=== PATIENT | male | born 1985 | race Caucasian/White ===

== ENCOUNTER 2023-07-16 02:39 | Emergency (ER) | payer OTHER, MEDICAID, SELFPAY ==
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
[2023-07-16 02:49] VITALS: BP 120/71; PULSE 97; RESP 16; TEMP 36.9; O2SAT 97; BMI 21.7
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
--- NOTE | 2023-07-16 02:55 | DI.RAD.S_ITS ---
PROCEDURE: XR FOREARM LT 2V INDICATIONS: pain TECHNIQUE: 2 views of the forearm were acquired. COMPARISON: None. FINDINGS: Bones: No fractures or dislocations. No suspicious bony lesions. Soft tissues: No suspicious soft tissue calcifications or masses. IMPRESSION: Left radius/ulna without acute fracture or dislocation. If there is persistent clinical concern for occult fracture given adequate mechanism of injury, consider repeat imaging in 10-14 days. No significant discrepancy with the warehouse worker 2nd shift radiology preliminary report. Dictated by: Isma Hall M.D. on 07/16/2023 at 7:48 Approved by: Isma Hall M.D. on 07/16/2023 at 7:49
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
[2023-07-16] MEDS: IBUPROFEN 400 MG TABLET 800 MG PO (03:32)
[2023-07-16] MEDS: ACETAMINOPHEN 325 MG TABLET 650 MG PO (03:32)
[2023-07-16 04:32] VITALS: BP 124/60; RESP 18
[2023-07-16 04:33] VITALS: PULSE 90; O2SAT 98
[2023-07-16 04:47] VITALS: BP 126/62; PULSE 88; RESP 16; O2SAT 95
== END 2023-07-16 04:48 | disposition home or self-care (01) ==
PROVIDERS: Emergency Provider Emergency Medicine; PCP Hospitalist
DX: S93.601A Unspecified sprain of right foot, initial encounter (principal); M25.532 Pain in left wrist; S29.9XXA Unspecified injury of thorax, initial encounter; V89.2XXA Person injured in unspecified motor-vehicle accident, traffic, initial encounter
CPT/HCPCS: 71046; 73090; 73110; 73630; 99283